=== PATIENT | female | born 1990 | race Caucasian/White ===

== ENCOUNTER → 2022-11-03 | Outpatient (CLI) | payer SELFPAY ==
[~2022-11-03] MED LIST: AMIT10; AMIT25; BC PILL; BCP'S; CEPH500 PO; HYDACE5 PO; IBUP200; IBUP800 PO; MEDR150I; MIDRIN; NAPR500 PO; PREN-16 PO; PROG100 PO; PROM25 PO; SULTRIDS PO; TRIA80TC TOP; YAZ; ZOLM2.5; [UNRECOGNIZED DRUG - REMARK]; [UNRECOGNIZED DRUG - REMARK]
== END | disposition home or self-care (01) ==
LOC: LAB 14:25 → LAB SHORT 14:25
PROVIDERS: Advanced Practice Midwife
DX: O60.03 Preterm labor without delivery, third trimester (principal)
CPT/HCPCS: 82731

== ENCOUNTER 2022-11-09 22:37 | Observation (INO) | payer OTHER ==
[~2022-11-09] VITALS: Ht 167.6 cm; Wt 68.1 kg
== END 2022-11-10 11:00 | disposition home or self-care (01) ==
LOC: OBS 22:37 → BC 22:40 → OBS 11-10 05:27 → BC 11-10 05:28
PROVIDERS: ADMIT Family Medicine
DX: O60.03 Preterm labor without delivery, third trimester (principal); Z3A.35 35 weeks gestation of pregnancy
CPT/HCPCS: 59025; 81003; 96372; 99214; A9270; G0378; J3105; J7120

== ENCOUNTER 2022-11-14 02:02 | Inpatient (IN) | payer OTHER ==
[~2022-11-14] VITALS: Ht 170.2 cm; Wt 68.2 kg
[2022-11-14 04:07] LABS: BASOPHILS ABSOLUTE AUTO 0.04 K/mm3 (0.00-0.23); BASOPHILS PERCENT AUTO 1 % (0-2); EOSINOPHILS ABSOLUTE AUTO 0.07 K/mm3 (0.00-0.68); EOSINOPHILS PERCENT AUTO 1 % (0-6); Hemoglobin 11.8 g/dL (11.5-16.0); IMMATURE GRAN ABSOLUTE AUTO 0.05 K/mm3 (0.00-0.10); IMMATURE GRAN PERCENT AUTO 1 % (0-1); LYMPHOCYTES ABSOLUTE AUTO 1.94 K/mm3 (0.84-5.20); LYMPHOCYTES PERCENT AUTO 23 % (21-46); MONOCYTES ABSOLUTE AUTO 0.58 K/mm3 (0.16-1.47); MONOCYTES PERCENT AUTO 7 % (4-13); Mean Corpuscular HGB 33.5 pg (26.0-34.0); Mean Corpuscular HGB Conc 35.8 g/dL (31.5-36.5); Mean Corpuscular Volume 94 fL (80-100); NEUTROPHILS ABSOLUTE AUTO 5.83 K/mm3 (1.96-9.15); NEUTROPHILS PERCENT AUTO 69 % (41-73); Platelet Count 191 K/mm3 (150-400); RDW Coefficient Variation 13.3 % (11.7-14.2); RDW Standard Deviation 45.8 fL (35.1-46.3); Red Blood Cell Count 3.52 M/mm3 (3.80-5.20); White Blood Cell Count 8.51 K/mm3 (4.00-11.30)
--- NOTE | 2022-11-14 20:39 | NUR ---
patient has no needs at this time.
--- NOTE | 2022-11-15 09:16 | NUR ---
0908 EFM OFF REACTIVE NST FHR 130-140 WITH MODERATED VARILABLITY, MILD UNTERINE CRAMPING PER PATIENT, REPT TO Akshat JACQUES RN
--- NOTE | 2022-11-15 10:24 | NUR ---
DC INSTRUCTIONS REVIEWED WITH PT, VERBALIZES UNDERSTANDING. HAS APPT WITH [facility] THURSDAY AND WILL COME IN FOR NSTS DAILY. NUMBER GIVEN FOR [facility] AND ASKED FOR PT TO CALL BEFORE NST IF POSSIBLE. IF IN ACTIVE LABOR OR ANY CONCERNS JUST TO RETURN BACK. QUESTIONS ANSWERED. DC/D HOME WITH PARTNER AT SIDE. IV REMOVED.
== END 2022-11-15 11:00 | disposition home or self-care (01) | DRG 833 ==
LOC: OBS 02:02 → BC 02:03 → OBS 02:33 → BC 02:34
PROVIDERS: Family Medicine; ADMIT Nurse Practitioner Obstetrics & Gynecology
DX: O47.03 False labor before 37 completed weeks of gestation, third trimester (principal); Z3A.35 35 weeks gestation of pregnancy; Z67.10 Type A blood, Rh positive; Z85.3 Personal history of malignant neoplasm of breast; Z90.49 Acquired absence of other specified parts of digestive tract; Z98.890 Other specified postprocedural states; Z88.6 Allergy status to analgesic agent; Z91.018 Allergy to other foods
CPT/HCPCS: 36415; 59025; 85025; 86850; 86900; 86901; A9270; J0290; J0702; J2590; J7120

== ENCOUNTER 2022-12-09 06:02 | Inpatient (IN) | payer OTHER ==
[~2022-12-09] VITALS: Ht 170.2 cm; Wt 70.0 kg
[2022-12-09 06:49] LABS: BASOPHILS ABSOLUTE AUTO 0.02 K/mm3 (0.00-0.23); BASOPHILS PERCENT AUTO 0 % (0-2); EOSINOPHILS ABSOLUTE AUTO 0.07 K/mm3 (0.00-0.68); EOSINOPHILS PERCENT AUTO 1 % (0-6); Hematocrit 33.9 % (33.0-51.0); IMMATURE GRAN ABSOLUTE AUTO 0.06 K/mm3 (0.00-0.10); IMMATURE GRAN PERCENT AUTO 1 % (0-1); LYMPHOCYTES ABSOLUTE AUTO 1.16 K/mm3 (0.84-5.20); LYMPHOCYTES PERCENT AUTO 14 % (21-46); MONOCYTES ABSOLUTE AUTO 0.55 K/mm3 (0.16-1.47); MONOCYTES PERCENT AUTO 6 % (4-13); Mean Corpuscular HGB 33.1 pg (26.0-34.0); Mean Corpuscular HGB Conc 35.4 g/dL (31.5-36.5); Mean Corpuscular Volume 94 fL (80-100); Mean Platelet Volume 11.4 fL (9.1-12.4); NEUTROPHILS PERCENT AUTO 78 % (41-73); Platelet Count 172 K/mm3 (150-400); RDW Coefficient Variation 13.2 % (11.7-14.2); RDW Standard Deviation 45.4 fL (35.1-46.3); Red Blood Cell Count 3.62 M/mm3 (3.80-5.20); White Blood Cell Count 8.56 K/mm3 (4.00-11.30)
[2022-12-10 06:15] LABS: Hematocrit 30.8 % (33.0-51.0); Hemoglobin 10.7 g/dL (11.5-16.0); Mean Corpuscular HGB Conc 34.7 g/dL (31.5-36.5); Mean Corpuscular Volume 95 fL (80-100); Mean Platelet Volume 11.7 fL (9.1-12.4); Platelet Count 138 K/mm3 (150-400); RDW Coefficient Variation 13.2 % (11.7-14.2); RDW Standard Deviation 45.6 fL (35.1-46.3); Red Blood Cell Count 3.24 M/mm3 (3.80-5.20); White Blood Cell Count 7.66 K/mm3 (4.00-11.30)
[2022-12-10] MEDS ORDERED: IBUP800 PO (12:06)
== END 2022-12-10 13:30 | disposition home or self-care (01) | DRG 807 ==
LOC: BC 06:02 → OBS 06:02 → BC 06:15
PROVIDERS: ADMIT Nurse Practitioner Obstetrics & Gynecology
PROC: 10E0XZZ Delivery of Products of Conception, External Approach (ICD-10-PCS; principal; 2022-12-09)
PROC: 3E0R3BZ Introduction of Anesthetic Agent into Spinal Canal, Percutaneous Approach (ICD-10-PCS; 2022-12-09)
PROC: 00HU33Z Insertion of Infusion Device into Spinal Canal, Percutaneous Approach (ICD-10-PCS; 2022-12-09)
PROC: 10907ZC Drainage of Amniotic Fluid, Therapeutic from Products of Conception, Via Natural or Artificial Opening (ICD-10-PCS; 2022-12-09)
PROC: 3E033VJ Introduction of Other Hormone into Peripheral Vein, Percutaneous Approach (ICD-10-PCS; 2022-12-09)
DX: O99.824 Streptococcus B carrier state complicating childbirth (principal); Z37.0 Single live birth; Z3A.39 39 weeks gestation of pregnancy; Z88.5 Allergy status to narcotic agent; Z86.79 Personal history of other diseases of the circulatory system; Z96.652 Presence of left artificial knee joint
CPT/HCPCS: 36415; 51702; 85025; 85027; 86850; 86900; 86901; 86923; A9270; J0290; J1885; J2210; J2590; J7120

== ENCOUNTER 2024-12-14 20:36 | Emergency (ER) | payer OTHER ==
[~2024-12-14] VITALS: Ht 170.2 cm; Wt 65.8 kg
[2024-12-14 20:47] VITALS: BP 153/102
[2024-12-14] MEDS ORDERED: EPINEPhrine HCl 1 MG/ML 1ML Amp IM ONE (20:55)
[2024-12-14] MEDS ORDERED: Famotidine 10 MG/ML 2ML Vial IV ONE (20:55)
[2024-12-14] MEDS ORDERED: MethylPREDNISolone Sod Succ 125 MG Vial IV ONE (20:55)
[2024-12-14 21:33] LABS: BASOPHILS ABSOLUTE AUTO 0.04 K/mm3 (0.00-0.23); BASOPHILS PERCENT AUTO 1 % (0-2); EOSINOPHILS ABSOLUTE AUTO 0.21 K/mm3 (0.00-0.68); EOSINOPHILS PERCENT AUTO 3 % (0-6); Hematocrit 40.4 % (33.0-51.0); Hemoglobin 14.1 g/dL (11.5-16.0); IMMATURE GRAN ABSOLUTE AUTO 0.03 K/mm3 (0.00-0.10); IMMATURE GRAN PERCENT AUTO 0 % (0-1); LYMPHOCYTES ABSOLUTE AUTO 2.29 K/mm3 (0.84-5.20); LYMPHOCYTES PERCENT AUTO 32 % (21-46); MONOCYTES PERCENT AUTO 7 % (4-13); Mean Corpuscular HGB 31.8 pg (26.0-34.0); Mean Corpuscular HGB Conc 34.9 g/dL (31.5-36.5); Mean Corpuscular Volume 91 fL (80-100); Mean Platelet Volume 10.7 fL (9.1-12.4); NEUTROPHILS ABSOLUTE AUTO 4.19 K/mm3 (1.96-9.15); NEUTROPHILS PERCENT AUTO 58 % (41-73); Platelet Count 242 K/mm3 (150-400); RDW Coefficient Variation 11.9 % (11.7-14.2); RDW Standard Deviation 39.9 fL (35.1-46.3); Red Blood Cell Count 4.43 M/mm3 (3.80-5.20); White Blood Cell Count 7.26 K/mm3 (4.00-11.30)
[2024-12-14] MEDS ORDERED: DiphenhydrAMINE HCl 50 MG/ML 1ML Vial IV ONE (21:40)
[2024-12-14] MEDS ORDERED: NS 1,000 ML IV SCH (21:40)
[2024-12-14 21:53] LABS: Albumin, Blood 4.2 g/dL (3.4-5.0); Albumin/Globulin Ratio 1.4 (0.8-1.8); Bilirubin, Total 1.2 mg/dL (0.1-1.0); Bun/Creatinine Ratio 25.5 (12.0-20.0); Calcium, Blood 9.1 mg/dL (8.5-10.1); Creatinine, Blood 0.82 mg/dL (0.40-1.00); Potassium, Blood 3.7 mmol/L (3.5-5.5); Total Protein, Blood 7.2 g/dL (6.4-8.2)
[2024-12-14] MEDS ORDERED: FAMO20 PO (22:50)
[2024-12-14] MEDS ORDERED: PRED20 PO (22:50)
[2024-12-14] MEDS ORDERED: EPIPEN0.3 MG/0.1 IM (22:50)
== END 2024-12-14 23:37 | disposition home or self-care (01) ==
LOC: ER 20:36
PROVIDERS: Student in an Organized Health Care Education/Training Program
DX: T78.40XA Allergy, unspecified, initial encounter (principal); J45.909 Unspecified asthma, uncomplicated; E11.9 Type 2 diabetes mellitus without complications; Z88.5 Allergy status to narcotic agent; Z91.018 Allergy to other foods
CPT/HCPCS: 80053; 85025; 96361; 96374; 96375; 99284-25; J0171; J1200; J2919; J7030